=== PATIENT | male | born 1950 | race Caucasian/White ===

== ENCOUNTER 2024-02-17 08:40 | Emergency (ER) | payer OTHER, MEDICAID ==
[~2024-02-17] VITALS: Ht 182.9 cm; Wt 114.3 kg
[2024-02-17] MEDS ORDERED: TAMS-35 PO (10:25)
[2024-02-17 10:44] VITALS: BP 140/91; PULSE 98; RESP 18; TEMP 98.7; O2SAT 93
== END 2024-02-17 10:44 | disposition home or self-care (01) ==
LOC: ER 08:40
DX: R33.9 Retention of urine, unspecified (principal); Z88.1 Allergy status to other antibiotic agents
CPT/HCPCS: 51702

== ENCOUNTER 2025-08-05 05:40 | Inpatient (IN) | payer OTHER, MEDICARE ==
[~2025-08-05] VITALS: Ht 185.4 cm; Wt 116.0 kg
[~2025-08-05 05:40] MED LIST: TAMS-35 PO
--- NOTE | 2025-08-05 06:29 | ED.PDOC ---
General HPI Comments This is 75 year-old male, with a Hx of Enlarged Prostate, who presents to the ED with a chief complaint of urinary retention for hours. Patient reports the urge to urinate, but an inability to do so. Patient reports his last void was last night around 2230. Patient reports having urinary problems before, due to his enlarged prostate. Patient has no further complaints at this time and otherwise denies further associated symptoms of dysuria, hematuria, N/V/D, weakness, fatigue, fever. Chief Complaint: Urinary Time Seen by MD: 06:39 Primary Care Provider: CIARA KIMBALL Reviewed notes: Medications, Allergies Allergies: Coded Allergies: Ciprofloxacin (Verified Allergy, Unknown, 02/17/24) Home Meds Active Scripts Tamsulosin Hcl (Flomax) 0.4 Mg Cap, 1 CAP PO DAILY, #30 CAP Prov:TORRI QUINTERO 02/17/24 Information Source: Patient Mode of Arrival: Ambulatory Severity: Moderate Inability to void: Mild Duration: Since onset Prehospital treatment: None Onset: Spontaneous History of: Prostatitis associated signs and symptoms: Other (urinary retention ) Past Medical History PAST MEDICAL HISTORY: High Lipids Past Medical History (Other): Prostate, Mcgowan's Palsy Surgical History: Unknown Family History Family History: Unknown Social History Smoker: Non-Smoker Alcohol: Denies ETOH Use Drugs: Denies Drug Use Lives In: Home Constitutional: denies: chills, diaphoresis, fatigue, fever, malaise, sweats, weakness, others EENTM: denies: blurred vision, double vision, ear bleeding, ear discharge, ear drainage, ear pain, ear ringing, eye pain, eye redness, hearing loss, mouth pain, mouth swelling, nasal discharge, nose bleeding, nose congestion, nose pain, photophobia, tearing, throat pain, throat swelling, voice changes, others Respiratory: denies: cough, hemoptysis, orthopnea, SOB at rest, shortness of breath, SOB with excertion, stridor, wheezing, others Cardiovascular: denies: chest pain, dizzy spells, diaphoresis, Dyspnea on exertion, edema, irregular heart beat, left arm pain, lightheadedness, palpitations, PND, syncope, others Gastrointestinal: denies: abdomen distended, abdominal pain, blood streaked bowels, constipated, diarrhea, dysphagia, difficulty swallowing, hematemesis, melena, nausea, poor appetite, poor fluid intake, rectal bleeding, rectal pain, vomiting, others Genitourinary: reports: others (urinary retention ); denies: burning, dysuria, flank pain, frequency, hematuria, incontinence, penile discharge, penile sore, pain, testicle pain, testicle swelling, urgency Neurological: denies: dizziness, fainting, headache, left sided numbness, left sided weakness, numbness, paresthesia, pre-existing deficit, right sided numbness, right sided weakness, seizure, speech problems, tingling, tremors, weakness, others Musculoskeletal: denies: back pain, gout, joint pain, joint swelling, muscle pain, muscle stiffness, neck pain, others Integumetry: denies: bruises, change in color, change in hair/nails, dryness, laceration, lesions, lumps, rash, wounds, others Allergic/Immunocompromised: denies: Difficulty Healing, Frequent Infections, Hives, Itching, others Hematologic/Lymphatic: denies: anemia, blood clots, easy bleeding, easy bruising, swollen glands, others Endocrine: denies: excessive hunger, excessive sweating, excessive thirst, excessive urination, flushing, intolerance to cold, intolerance to heat, unexplained weight gain, unexplained weight loss, others Psychiatric: denies: anxiety, bipolar disorder, depression, hopeless, panic disorder, schizophrenia, sleepless, suicidal, others All Other Systems: Reviewed and Negative Physical Exam General Appearance: Moderate Distress HEENT: Normal ENT Inspection, Pharynx Normal, TMs Normal Neck: Full Range of Motion, Non-Tender, Normal, Normal Inspection Respiratory: Chest Non-Tender, Lungs Clear, No Accessory Muscle Use, No Respi ratory Distress, Normal Breath Sounds Cardiovascular: No Edema, No JVD, No Murmur, No Gallop, Normal Peripheral Pulses, Regular Rate/Rhythm Breast Exam: Deferred Gastrointestinal: No Organomegaly, Non Tender, No Pulsatile Mass, Normal Bowel Sounds, Soft Genitalia: Deferred Pelvic: Deferred Rectal: Deferred Extremities: No calf tenderness, Normal capillary refill, Normal inspection, Normal range of motion, Non-tender, No pedal edema Musculoskeletal : Apperance: Normal Neurologic: Alert, puff ironer II-XII nml as Tested, Facial Droop (Chronic), No Motor Deficits, Normal Affect, Normal Mood, No Sensory Deficits Cerebellar Function: Normal Reflexes: Normal Skin: Dry, Normal Color, Warm Peripheral Pulses: 3+ Radial (R), 3+ Radial (L) Lymphatic: No Adenopathy Was a procedure done? Was a procedure done?: No Differential Diagnosis Kidney stone (Female): Musculoskeletal pain, Urinary obstruction, Urolithiasis Urinary Problem (Male): Prostatitis, Urethritis, Urolithiasis, UTI X-Ray, Labs, Meds, VS Vital Signs Date Time Temp Pulse Resp B/P (MAP) Pulse Ox O2 Delivery O2 Flow Rate FiO2 08/05/25 05:49 98.2 107 20 150/94 96 98.2 Lab Test 08/05/25 07:02 Range/Units White Blood Count Pending Red Blood Count Pending Hemoglobin Pending Hematocrit Pending Mean Corpuscular Volume Pending Mean Corpuscular Hemoglobin Pending Mean Corpuscular Hemoglobin Concent Pending Red Cell Distribution Width Pending Platelet Count Pending Mean Platelet Volume Pending Neutrophils (%) (Auto) Pending Lymphocytes (%) (Auto) Pending Monocytes (%) (Auto) Pending Basophils (%) (Auto) Pending Neutrophils # (Auto) Pending Lymphocytes # (Auto) Pending Monocytes # (Auto) Pending Sodium Level Pending Potassium Level Pending Chloride Level Pending Carbon Dioxide Level Pending Anion Gap Pending Blood Urea Nitrogen Pending Creatinine Pending Glomerular Filtration Rate Calc Pending BUN/Creatinine Ratio Pending Serum Glucose Pending Calcium Level Pending Patient alert. Blood pressure elevated. Saturation pristine on room air. Tachycardia. Has old facial droop. Placed a Cerda catheter. Urology consultation. Was given Flomax. Explained to the patient that he will be admitted for further workup. Continue monitoring. Images Reviewed?: Images reviewed and evaluated by me Time of 1ST Reevaluation: 06:55 Reevaluation 1ST: Unchanged Patient Education/Counseling: Diagnosis, Treatment Family Education/Counseling: No Family Present SEPSIS Sepsis Screen Date sepsis recognized/suspect: Aug 05, 2025 Time Sepsis recognized/suspect: 0551 Recent Procedure: No On Antibiotic Therapy: No Respiratory Rate >20: No Heart Rate >90: Yes Temp<36 C (96.8 F) or >38.3 C: No SBP <90 or MAP <65 mmHG: No New Acute Mental Status Change: No Is the patient on CPAP, BIPAP,: No Physician Orders Urinalysis (08/05/25 06:51) Insert Cerda Catheter QSHIFT (08/05/25 06:51) Complete Blood Count (08/05/25 06:52) Basic Metabolic Panel (08/05/25 06:52) Vital Signs Date Time Temp Pulse Resp B/P (MAP) Pulse Ox O2 Delivery O2 Flow Rate FiO2 08/05/25 05:49 98.2 107 20 150/94 96 98.2 Laboratory Tests Test 08/05/25 07:02 White Blood Count Pending Departure 1 Departure Time of Disposition: 07:16 Impression: Primary Impression: Acute urinary retention Additional Impression: Hypertension Qualified Codes: I10 - Essential (primary) hypertension Disposition: ADMITTED INPATIENT Admit to: Med Surg Condition: Guarded Critical Care Note Critical Care Time?: No Stability Stability form required: No Heart Score Heart Score: Heart Score Response (Comments) Value History N/A 0 EKG N/A 0 Age N/A 0 Risk Factors N/A 0 Troponin N/A 0 Total 0 I personally scribed for DUKE PULIDO MD ([email or web address]) on 08/05/25 at 06:29. Electronically submitted by Mag Strickland ([email or web address]). I personally scribed for DUKE PULIDO MD ([email or web address]) on 08/05/25 at 06:54. Electronically submitted by Mag Strickland ([email or web address]). DUKE PULIDO MD Aug 05, 2025 06:29
[2025-08-05 07:16] LABS: Hematocrit 46.6 % (41.0-53.0); Hemoglobin 16.0 g/dL (13.5-17.5); Mean Corpuscular Hemoglobin 29.7 pg (28.0-32.0); Mean Corpuscular Volume 86.3 fL (80.0-100.0); Nucleated Red Blood Cells % 0.1 %
[2025-08-05 07:23] LABS: Potassium 4.3 mmol/L (3.5-5.1); Sodium 142 mmol/L (136-145)
[2025-08-05 07:24] LABS: Anion Gap 9 (5-15); Calcium 9.4 mg/dL (8.7-10.4); Carbon Dioxide 25 mmol/L (20-31)
[2025-08-05 07:25] LABS: Chloride 108 mmol/L (98-107)
[2025-08-05 07:29] LABS: BUN/Creatinine Ratio 9.9 (10.0-20.0); Blood Urea Nitrogen 11 mg/dL (9-23)
[2025-08-05 07:32] LABS: Glucose 124 mg/dL (74-106)
[2025-08-05 07:35] VITALS: PULSE 100; RESP 12; O2SAT 94
[2025-08-05] MEDS: TAMSULOSIN HYDROCHLORIDE 0.4 MG CAP PO ONE (07:55)
[2025-08-05 07:58] LABS: Urine Protein, UAD Negative (Negative)
[2025-08-05] MEDS ORDERED: ACETAMINOPHEN 325 MG TAB PO PRN (08:15)
[2025-08-05] MEDS ORDERED: ONDANSETRON HCL 4 MG/2 ML VIAL IV PRN (08:15)
[2025-08-05] MEDS ORDERED: MORPHINE SULFATE INJ 2 MG/ml SYRG IV PRN (08:15)
--- NOTE | 2025-08-05 08:24 | DVHHPRES ---
History of Present Illness Resident Creating Document: SUJATHA KNAPP History of Present Illness Vignesh Damon is a 75-year-old male patient who presents to ED with chief complaint of inability to urinate since 10:30 p.m. on 08/04/2025, deciding to present to the ED at 5:00 a.m. on 08/05/2025 where his symptoms resolved after placement of a Cerda catheter. Patient reports history of BPH, he is compliant with his tamsulosin. Denies any fever, chills, initiation of new medication, dysuria in any other associated symptom. 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 Surgical history: Cataract surgery two years ago, appendectomy Family history: Noncontributory Social history: Lives in [place] alone (next of kin is son). Ex tobacco abuse (45 pack-year history of smoking) quit 12 years ago. Denies current tobacco, alcohol and other drug abuse Allergies: Ciprofloxacin Home medication: Atorvastatin 20 mg p.o. daily, tamsulosin 0.4 mg p.o. daily Patient seen and examined at bedside. Currently has no new complaints. Has Cerda catheter placed which presents clear urine. Past Medical History Per HPI Past Surgical History Per HPI Family History Per HPI Past Social History Per HPI Review of Systems Review of Systems Per HPI Allergies: Coded Allergies: Ciprofloxacin (Verified Allergy, Unknown, 02/17/24) Medications Current Medications Medications Dose Ordered Sig/Demetrius Route Start Time Stop Time Status Last Admin Dose Admin Acetaminophen 325 mg Q4HP PRN PO 08/05/25 08:15 Ondansetron HCl 4 mg Q4HP PRN IV 08/05/25 08:15 UNV Morphine Sulfate 2 mg Q4HPRN PRN IV 08/05/25 08:15 UNV Enoxaparin Sodium 40 mg DAILY SC 08/05/25 10:00 UNV Exam Vital Signs Vital Signs Date Time Temp Pulse Resp B/P (MAP) Pulse Ox O2 Delivery O2 Flow Rate FiO2 08/05/25 07:35 98.3 100 12 133/87 (102) 94 98.3 08/05/25 07:35 Room Air* 0 21 Exam Patient lying in bed, in no acute distress General: Lucid, afebrile, mucosae are moist Cardiovascular: Normal S1 and S2. No murmurs, gallops or rubs Respiratory: Normal ventilation mechanics. Clear lung sounds on auscultation Abdomen: Soft, nontender, no organomegaly, normal bowel sounds MSK/skin: Mobilizes 4 limbs. Skin is dry and warm Neurological: Oriented in 3 spheres. Left peripheral facial paralysis, no other motor no sensitive deficits. Pupils are isocoric and reactive Labs/Xrays Labs Test 08/05/25 07:41 08/05/25 07:02 Range/Units Urine Color Light-yellow Yellow Urine Clarity Clear Clear Urine pH 5.5 5.0-9.0 Urine Specific [place] 1.009 1.001-1.035 Urine Protein Negative Negative Urine Ketones Negative Negative Urine Blood Negative Negative /uL Urine Nitrite Negative Negative Urine Bilirubin Negative Negative Urine Urobilinogen Normal Negative mg/dL Urine Leukocyte Esterase Negative Negative /uL Urine RBC 1 0 - 3 /hpf Urine Microscopic WBC 1 0-3 /HPF Urine Squamous Epithelial Cells None seen <5 /hpf Urine Bacteria None seen None Seen /hpf Urine Glucose Normal Normal mg/dL White Blood Count 9.6 4.4-10.8 10^3/uL Red Blood Count 5.40 4.5-5.90 10^6/uL Hemoglobin 16.0 13.5-17.5 g/dL Hematocrit 46.6 41.0-53.0 % Mean Corpuscular Volume 86.3 80.0-100.0 fL Mean Corpuscular Hemoglobin 29.7 28.0-32.0 pg Mean Corpuscular Hemoglobin Concent 34.4 32.0-36.0 g/dL Red Cell Distribution Width 14.8 H 11.8-14.3 % Platelet Count 204 140-450 10^3/uL Mean Platelet Volume 7.8 6.9-10.8 fL Neutrophils (%) (Auto) 76.7 37.0-80.0 % Lymphocytes (%) (Auto) 14.3 10.0-50.0 % Monocytes (%) (Auto) 7.5 0.0-12.0 % Eosinophils (%) (Auto) 1.3 0.0-7.0 % Basophils (%) (Auto) 0.2 0.0-2.0 % Neutrophils # (Auto) 7.4 1.6-8.6 10 ^3/uL Lymphocytes # (Auto) 1.4 0.4-5.4 10 ^3/uL Monocytes # (Auto) 0.7 0-1.3 10 ^3/uL Eosinophils # (Auto) 0.1 0-0.8 10 ^3/uL Basophils # (Auto) 0 0-0.2 10 ^3/uL Nucleated Red Blood Cells 0.1 % Sodium Level 142 136-145 mmol/L Potassium Level 4.3 3.5-5.1 mmol/L Chloride Level 108 H 98-107 mmol/L Carbon Dioxide Level 25 20-31 mmol/L Anion Gap 9 5-15 Blood Urea Nitrogen 11 9-23 mg/dL Creatinine 1.11 0.700-1.30 mg/dL Glomerular Filtration Rate Calc 69 >90 mL/min BUN/Creatinine Ratio 9.9 L 10.0-20.0 Serum Glucose 124 H 74-106 mg/dL Calcium Level 9.4 8.7-10.4 mg/dL SEPSIS Sepsis Screen Date sepsis recognized/suspect: Aug 05, 2025 Time Sepsis recognized/suspect: 07 Recent Procedure: No On Antibiotic Therapy: No Respiratory Rate >20: No Heart Rate >90: Yes Temp<36 C (96.8 F) or >38.3 C: No SBP <90 or MAP <65 mmHG: No New Acute Mental Status Change: No Is the patient on CPAP, BIPAP,: No Physician Orders Insert Cerda Catheter QSHIFT (08/05/25 06:51) Admit (08/05/25 08:14) Code Status (08/05/25 08:14) Acetaminophen Tablet (Tylenol Tablet) (08/05/25 08:15) Ondansetron Hcl (Zofran) (08/05/25 08:15) Complete Blood Count (08/06/25 04:00) Comprehensive Metabolic Panel (08/06/25 04:00) Cardiac Diet-2gna,Lofat,Lochol (08/05/25 Breakfast) Morphine Sulfate Injection (08/05/25 08:15) Enoxaparin Sodium (Lovenox) (08/05/25 10:00) Oxygen By Nasal Cannula (08/05/25 08:14) Stat Ekg For Chest Pain (08/05/25 08:14) Notify Of Changes From Base (08/05/25 08:14) Paint Specialist For 24 Hours (08/05/25 08:14) Emergency Dysrhythmia Protocol (08/05/25 08:14) Rhythm Strips Once Every Shift (08/05/25 08:14) Kidney (08/05/25 08:14) Chest Xray 1 View (08/05/25 08:14) Urine Bacterial Culture (08/05/25 08:14) Vitamin D, 25-Hydroxy (08/05/25 08:14) Vitamin B12 (08/05/25 08:14) Thyroid Stimulating Hormone (08/05/25 08:14) PTPTT (08/05/25 08:14) Phosphorus (08/05/25 08:14) Magnesium (08/05/25 08:14) Lipid Panel (08/05/25 08:14) Hemoglobin A1c (08/05/25 08:14) Drug Screen (08/05/25 08:14) Hepatic Panel (08/05/25 08:20) Vital Signs Date Time Temp Pulse Resp B/P (MAP) Pulse Ox O2 Delivery O2 Flow Rate FiO2 08/05/25 07:35 98.3 100 12 133/87 (102) 94 98.3 08/05/25 07:35 100 12 94 Room Air* 0 21 08/05/25 05:49 98.2 107 20 150/94 96 98.2 Laboratory Tests Test 08/05/25 07:02 White Blood Count 9.6 10^3/uL (4.4-10.8) Medications Medications Dose Ordered Sig/Demetrius Route Start Time Stop Time Status Last Admin Dose Admin Tamsulosin HCl 0.4 mg ONCE ONCE PO 08/05/25 07:30 08/05/25 07:31 DC 08/05/25 07:55 0.4 MG Assessment/Plan Assessment/Plan ASSESSMENT Acute urinary retention Rule out UTI Benign prostatic hyperplasia History of Mcgowan's palsy at the age of [age] Dyslipidemia Newly diagnosed prediabetes (hemoglobin A1c 5.8%) Ex tobacco abuse (45 pack-year history of smoking) PLAN Patient admitted to [facility] Ordered kidney ultrasound which showed no hydronephrosis or acute findings. Consulted Urology for urinary retention. Evaluate discharging patient with Cerda. Ordered PSA. Continue tamsulosin 0.4 mg p.o. daily Urine analysis seems clear, ordered urine culture. Hold on IV antibiotics at this point. Patient has significant pack-year history of smoking, high-risk of bladder cancer Patient's LDL is still elevated, increase dose of atorvastatin from 20 mg to 40 mg p.o. daily Patient currently on mild insulin sliding scale ACHS Goals of care discussed with patient for over 18 minutes: Full code status Discussed plan with Dr. Gomez, patient and family: Patient will be admitted to [facility]. Consulted urology specialist to evaluate need of discharging with Cerda catheter. Kidney ultrasound within normal limits. Plan discussed with: Patient, Other (Nurses) My Orders Orders - SUJATHA KNAPP RESIDENT Procedure Category Date Status Time Admit ADMIT 08/05/25 Transmitted 08:14 Code Status CODE 08/05/25 Transmitted 08:14 Acetaminophen Tablet PHA 08/05/25 Logged (Tylenol Tablet) 08:15 Ondansetron Hcl PHA 08/05/25 Logged (Zofran) 08:15 Complete Blood Count LAB 08/06/25 Verified 04:00 Comprehensive LAB 08/06/25 Verified Metabolic Panel 04:00 Cardiac DIET 08/05/25 Transmitted Diet-2gna,Lofat,Lochol Breakfast Morphine Sulfate PHA 08/05/25 Logged Injection 08:15 Enoxaparin Sodium PHA 08/05/25 Logged (Lovenox) 10:00 Oxygen By Nasal RT 08/05/25 Transmitted Cannula 08:14 Stat Ekg For Chest [place] 08/05/25 In Process Pain 08:14 Notify Of Changes [place] 08/05/25 In Process From Base 08:14 Paint Specialist For [facility] 08/05/25 In Process 24 Hours 08:14 Emergency Dysrhythmia [place] 08/05/25 In Process Protocol 08:14 Rhythm Strips Once [facility] 08/05/25 In Process Every Shift 08:14 Kidney US 08/05/25 Logged 08:14 Chest Xray 1 View XY 08/05/25 Logged 08:14 Urine Bacterial [place] 08/05/25 Logged Culture 08:14 Vitamin D, 25-Hydroxy LAB 08/05/25 Logged 08:14 Vitamin B12 LAB 08/05/25 Logged 08:14 Thyroid Stimulating LAB 08/05/25 Logged Hormone 08:14 PTPTT LAB 08/05/25 Logged 08:14 Phosphorus LAB 08/05/25 Logged 08:14 Magnesium LAB 08/05/25 Logged 08:14 Lipid Panel LAB 08/05/25 Logged 08:14 Hemoglobin A1c LAB 08/05/25 Logged 08:14 Drug Screen LAB 08/05/25 Logged 08:14 Hepatic Panel LAB 08/05/25 Logged 08:20 Date of Service: Aug 05, 2025 Billing Provider: TRISH GOMEZ MD Common Visit Codes: [id number] INP/OBS CARE (HIGH) Secondary Visit Codes: [id number] CARE PLAN 30 MINUTES SUJATHA KNAPP RESIDENT Aug 05, 2025 08:24
[2025-08-05 08:48] LABS: Magnesium 1.9 mg/dL (1.6-2.6)
[2025-08-05 08:49] LABS: HDL Cholesterol 53.0 mg/dL (40-59)
[2025-08-05 08:52] LABS: Cholesterol 216.0 mg/dL (< 200); Triglycerides 172.0 mg/dL (< 150)
[2025-08-05 09:04] LABS: Alanine Aminotransferase 21.0 U/L (7-40); Alkaline Phosphatase 95.0 U/L (46-116); Total Protein 7.6 g/dL (5.7-8.2)
[2025-08-05 09:05] LABS: Albumin 4.6 g/dL (3.2-4.8); Bilirubin, Direct 0.1 mg/dL (<0.3); Bilirubin, Total 0.5 mg/dL (0.2-1.0)
--- NOTE | 2025-08-05 09:05 | DVH ---
INDICATION: Acute urinary retention TECHNIQUE: Multiple real-time sonographic images of the kidneys and bladder were obtained. COMPARISON: None FINDINGS: The right kidney measures 9.8 cm in length, which is normal in size. There is normal echoge nicity of the right kidney. No hydronephrosis. The left kidney measures 9.6 cm in length, which is normal in size. There is normal echogenicity of t he left kidney. No hydronephrosis. No large intraluminal masses are seen in the bladder. Prior to voiding the bladder volume measures vo lume 66.3 cc. IMPRESSION: 1. Normal sonographic appearance of the kidneys. 2. No hydronephrosis.
[2025-08-05 09:20] LABS: INR 1.01 (0.9-1.15); Partial Thromboplastin Time 30.1 SEC (24.5-34.5); Prothrombin Time 10.7 sec (9.3-11.8)
--- NOTE | 2025-08-05 09:23 | DVH ---
CHEST RADIOGRAPH Indication: SOB Technique: Single frontal view of the chest was obtained COMPARISON: None FINDINGS: Lines and Tubes: None present. Lungs: Subtle opacity in the left lower lobe. Pleura: No pleural effusion. No pneumothorax. Cardiomediastinal contours: Cardiomediastinal contours are unremarkable. Bones: Bones are unremarkable. IMPRESSION: Subtle opacity in the left lower lobe. This may represent atelectasis, artifact or developing airspa ce disease. Clinical correlation advised.
[2025-08-05 09:42] LABS: Amphetamine Screen, Urine Neg (NEGATIVE); Barbiturate Scree,Urine Neg (NEGATIVE); Benzodiazephine Screen, Urine Neg (NEGATIVE); Cocaine Screen, Urine Neg (NEGATIVE)
[2025-08-05 09:44] LABS: Cannabinoid Screen, Urine Neg (NEGATIVE); Opiate Scree,Urine Neg (NEGATIVE); Phencyclidine Screen, Urine Neg (NEGATIVE)
[2025-08-05] MEDS: ENOXAPARIN SOD 40 MG/0.4 ML SYRINGE SC SCH (10:00)
[2025-08-05 10:23] VITALS: BP 135/81; PULSE 95; RESP 16; TEMP 97.4; O2SAT 94
[2025-08-05] MEDS ORDERED: DEXTROSE (50%) 50ML SYRG IV PRN (10:30)
[2025-08-05] MEDS ORDERED: ATOR20TA50 PO (11:09)
[2025-08-05] MEDS: InsuLIN REG 1unit/0.01ml Soln (100units/ml) SC SCH (11:17)
[2025-08-05] MEDS: ACCU-CHEK COMFORT CURVE STRIP VI SCH (11:18)
[2025-08-05] MEDS: SODIUM PHOSPHATES 20 MEQ in SODIUM CHL 0.9% 100 ML IV ONE (11:30)
--- NOTE | 2025-08-05 12:52 | DVHPN2 ---
Reviewed: Care Plan, H&P, Labs, Medications, Previous Orders, Radiology Changes from previous H/P or p: No Changes Objective Vitals Vital Signs Date Time Temp Pulse Resp B/P (MAP) Pulse Ox O2 Delivery O2 Flow Rate FiO2 08/05/25 10:23 97.4 95 16 135/81 (99) 94 97.4 08/05/25 07:35 Room Air* 0 21 Medications Current Medications Medications Dose Ordered Sig/Demetrius Route Start Time Stop Time Status Last Admin Dose Admin Acetaminophen 325 mg Q4HP PRN PO 08/05/25 08:15 Ondansetron HCl 4 mg Q4HP PRN IV 08/05/25 08:15 Morphine Sulfate 2 mg Q4HPRN PRN IV 08/05/25 08:15 Enoxaparin Sodium 40 mg DAILY SC 08/05/25 10:00 Tamsulosin HCl 0.4 mg QPM PO 08/06/25 18:00 Atorvastatin Calcium 40 mg HS PO 08/05/25 22:00 Diagnostic Test (Pha) 1 strip ACHS 08/05/25 11:30 08/05/25 11:18 1 STRIP Insulin Human Regular ACHS SC 08/05/25 11:30 Dextrose 50 ml UD PRN IV 08/05/25 10:30 Laboratory Results Laboratory Tests 08/05/25 07:02 Chemistry Test 08/05/25 07:02 Albumin 4.6 g/dL (3.2-4.8) Calcium Level 9.4 mg/dL (8.7-10.4) Magnesium Level 1.9 mg/dL (1.6-2.6) Phosphorus Level 2.3 mg/dL (2.4-5.1) L Total Protein 7.6 g/dL (5.7-8.2) Coagulation Test 08/05/25 07:02 Prothrombin Time 10.7 sec (9.3-11.8) Prothrombin Time INR 1.01 (0.9-1.15) Activated Partial Thromboplast Time 30.1 SEC (24.5-34.5) Lipid panel Test 08/05/25 07:02 Cholesterol Level 216 mg/dL (< 200) H HDL Cholesterol 53 mg/dL (40-59) Triglycerides Level 172 mg/dL (< 150) H LFT Test 08/05/25 07:02 Alanine Aminotransferase (ALT) 21 U/L (7-40) Alkaline Phosphatase 95 U/L (46-116) Aspartate Amino Transferase (AST) 23 U/L (13-40) Direct Bilirubin 0.1 mg/dL (<0.3) Total Bilirubin 0.5 mg/dL (0.2-1.0) HgA1c, TSH Test 08/05/25 07:02 Hemoglobin A1c 5.8 % A1C (<5.7) H Thyroid Stimulating Hormone (TSH) 2.23 uIU/mL (0.55-4.78) Urinalysis Test 08/05/25 07:41 Urine Color Light-yellow (Yellow) Urine Clarity Clear (Clear) Urine pH 5.5 (5.0-9.0) Urine Specific [place] 1.009 (1.001-1.035) Urine Protein Negative (Negative) Urine Ketones Negative (Negative) Urine Blood Negative /uL (Negative) Urine Nitrite Negative (Negative) Urine Bilirubin Negative (Negative) Urine Urobilinogen Normal mg/dL (Negative) Urine Leukocyte Esterase Negative /uL (Negative) Urine RBC 1 /hpf (0 - 3) Urine Microscopic WBC 1 /HPF (0-3) Urine Squamous Epithelial Cells None seen /hpf (<5) Urine Bacteria None seen /hpf (None Seen) Urine Glucose Normal mg/dL (Normal) Labs and/or images reviewed: Labs reviewed by me, Image(s) reviewed by me Assessment/Plan Assessment/Plan Acute urinary retention Cerda renal ultrasound neg UTI ruled out Benign prostatic hyperplasia : Flomax History of Mcgowan's palsy at the age of [age] Dyslipidemia : Lipitor History of smoking for 45 years: Counseling Time spent 45 minutes Advanced care planning time 20 minutes Patient is full code Plan discussed with: Patient Date of Service: Aug 05, 2025 Billing Provider: SHANTAL LAGUERRE MD Common Visit Codes: [id number] INP/OBS CARE(HIGH) Secondary Visit Codes: [id number] CARE PLAN 30 MINUTES SHANTAL LAGUERRE MD Aug 05, 2025 12:52
[2025-08-05 12:58] VITALS: BP 145/81; PULSE 100; RESP 15; TEMP 97.5; O2SAT 95
[2025-08-05 17:51] VITALS: BP 138/90; PULSE 98; RESP 20; TEMP 98; O2SAT 95
[2025-08-05 21:00] VITALS: BP 124/85; PULSE 97; RESP 18; TEMP 96.4; O2SAT 93
[2025-08-05] MEDS: ATORVASTATIN 20 MG TAB PO SCH (21:09)
[2025-08-06 04:54] VITALS: BP 130/95; PULSE 91; RESP 17; TEMP 96.8; O2SAT 93
[2025-08-06 06:30] LABS: Hematocrit 43.6 % (41.0-53.0); Hemoglobin 15.0 g/dL (13.5-17.5); Mean Corpuscular Hemoglobin 29.8 pg (28.0-32.0); Mean Corpuscular Volume 86.7 fL (80.0-100.0); Nucleated Red Blood Cells % 0.1 %
[2025-08-06 06:57] LABS: Alanine Aminotransferase 23 U/L (7-40); Albumin 4.3 g/dL (3.2-4.8); Alkaline Phosphatase 88 U/L (46-116); Anion Gap 13 (5-15); BUN/Creatinine Ratio 17.4 (10.0-20.0); Bilirubin, Total 0.8 mg/dL (0.2-1.0); Blood Urea Nitrogen 16 mg/dL (9-23); Calcium 9.1 mg/dL (8.7-10.4); Carbon Dioxide 23 mmol/L (20-31); Chloride 105 mmol/L (98-107); Glucose 96 mg/dL (74-106); Potassium 4.7 mmol/L (3.5-5.1); Sodium 141 mmol/L (136-145); Total Protein 6.9 g/dL (5.7-8.2)
[2025-08-06 08:52] VITALS: BP 130/90; PULSE 95; RESP 18; TEMP 98; O2SAT 93
--- NOTE | 2025-08-06 12:40 | DVHPN2 ---
Reviewed: Care Plan, H&P, Labs, Medications, Previous Orders, Radiology Changes from previous H/P or p: No Changes Objective Vitals Vital Signs Date Time Temp Pulse Resp B/P (MAP) Pulse Ox O2 Delivery O2 Flow Rate FiO2 08/06/25 08:52 98.0 95 18 130/90 (103) 93 98.0 08/05/25 20:05 Room Air* 0 21 Intake/Output Intake and Output 08/06/25 07:00 Intake Total 700 ml Output Total 1200 ml Balance -500 ml Intake Oral 700 ml Output Urine Total 1200 ml Medications Current Medications Medications Dose Ordered Sig/Demetrius Route Start Time Stop Time Status Last Admin Dose Admin Acetaminophen 325 mg Q4HP PRN PO 08/05/25 08:15 Ondansetron HCl 4 mg Q4HP PRN IV 08/05/25 08:15 Morphine Sulfate 2 mg Q4HPRN PRN IV 08/05/25 08:15 Enoxaparin Sodium 40 mg DAILY SC 08/05/25 10:00 08/06/25 10:41 40 MG Tamsulosin HCl 0.4 mg QPM PO 08/06/25 18:00 Atorvastatin Calcium 40 mg HS PO 08/05/25 22:00 08/05/25 21:09 40 MG Diagnostic Test (Pha) 1 strip ACHS 08/05/25 11:30 08/06/25 06:56 1 STRIP Insulin Human Regular ACHS SC 08/05/25 11:30 Dextrose 50 ml UD PRN IV 08/05/25 10:30 Laboratory Results Laboratory Tests 08/06/25 04:30 Chemistry Test 08/06/25 04:30 Albumin 4.3 g/dL (3.2-4.8) Calcium Level 9.1 mg/dL (8.7-10.4) Total Protein 6.9 g/dL (5.7-8.2) LFT Test 08/06/25 04:30 Alanine Aminotransferase (ALT) 23 U/L (7-40) Alkaline Phosphatase 88 U/L (46-116) Aspartate Amino Transferase (AST) 35 U/L (13-40) Total Bilirubin 0.8 mg/dL (0.2-1.0) Urinalysis Test 08/05/25 07:41 Urine Color Light-yellow (Yellow) Urine Clarity Clear (Clear) Urine pH 5.5 (5.0-9.0) Urine Specific [place] 1.009 (1.001-1.035) Urine Protein Negative (Negative) Urine Ketones Negative (Negative) Urine Blood Negative /uL (Negative) Urine Nitrite Negative (Negative) Urine Bilirubin Negative (Negative) Urine Urobilinogen Normal mg/dL (Negative) Urine Leukocyte Esterase Negative /uL (Negative) Urine RBC 1 /hpf (0 - 3) Urine Microscopic WBC 1 /HPF (0-3) Urine Squamous Epithelial Cells None seen /hpf (<5) Urine Bacteria None seen /hpf (None Seen) Urine Glucose Normal mg/dL (Normal) Labs and/or images reviewed: Labs reviewed by me, Image(s) reviewed by me Assessment/Plan Assessment/Plan Acute urinary retention Cerda renal ultrasound neg consult for urology UTI ruled out Benign prostatic hyperplasia : Flomax History of Mcgowan's palsy at the age of [age] Dyslipidemia : Lipitor History of smoking for 45 years: Counseling Time spent 45 minutes Advanced care planning time 20 minutes Patient is full code Plan discussed with: Patient My Orders Orders - SHANTAL LAGUERRE MD Procedure Category Date Status Time * Urology Consult CONS 08/06/25 Transmitted 12:33 Date of Service: Aug 06, 2025 Billing Provider: SHANTAL LAGUERRE MD Common Visit Codes: [id number] INP/OBS CARE(HIGH) SHANTAL LAGUERRE MD Aug 06, 2025 12:40
--- NOTE | 2025-08-06 12:45 | DVHINCON2 ---
Date of service: Aug 06, 2025 Referring Physician Liliana Cohen Reason for Consultation Urinary retention History of Present Illness 75 year-old male, with a Hx of Enlarged Prostate, who presents to the ED with a chief complaint of urinary retention for hours. Patient reports the urge to urinate, but an inability to do so. Patient reports his last void was last night around 2230. Patient reports having urinary problems before, due to his enlarged prostate. Patient has no further complaints at this time and otherwise denies further associated symptoms of dysuria, hematuria, N/V/D, weakness, fatigue, fever. Chief Complaint: Urinary Primary Care Provider: [facility] Reviewed notes: Medications, Allergies Allergies: Coded Allergies: Ciprofloxacin (Verified Allergy, Unknown, 02/17/24) Home Meds Active Scripts Tamsulosin Hcl (Flomax) 0.4 Mg Cap, 1 CAP PO DAILY, #30 CAP Prov:TORRI QUINTERO 02/17/24 Information Source: Patient Mode of Arrival: Ambulatory Severity: Moderate Inability to void: Mild Duration: Since onset Prehospital treatment: None Onset: Spontaneous History of: Prostatitis associated signs and symptoms: Other (urinary retention ) Past Medical History High Lipids Past Medical History (Other): Prostate, Mcgowan's Palsy Family History: Patient reports no known family medical history. Allergies: Coded Allergies: Ciprofloxacin (Verified Allergy, Unknown, 02/17/24) Home Meds Active Scripts Tamsulosin Hcl (Flomax) 0.4 Mg Cap, 1 CAP PO DAILY, #30 CAP Prov:TORRI QUINTERO 02/17/24 Reported Medications Atorvastatin Calcium (ATORVASTATIN CALCIUM) 20 Mg Tab, 20 MG PO DAILY, TAB 08/05/25 Current Medications Current Medications Medications (Trade) Dose Ordered Sig/Demetrius Route PRN Reason Start Time Stop Time Status Last Admin Tamsulosin HCl (Flomax) 0.4 mg QPM PO 08/06/25 18:00 Atorvastatin Calcium (Lipitor) 40 mg HS PO 08/05/25 22:00 08/05/25 21:09 Review of Systems Urinary retention Vital Signs Vital Signs Date Time Temp Pulse Resp B/P (MAP) Pulse Ox O2 Delivery O2 Flow Rate FiO2 08/06/25 08:52 98.0 95 18 130/90 (103) 93 98.0 08/05/25 20:05 Room Air* 0 21 Physical Exam Cerda in place Labs/Diagnostic Data Labs Test 08/06/25 10:43 08/06/25 04:30 08/05/25 11:12 08/05/25 07:41 Range/Units POC Glucose 100 70-106 mg/dl White Blood Count 9.3 4.4-10.8 10^3/uL Red Blood Count 5.03 4.5-5.90 10^6/uL Hemoglobin 15.0 13.5-17.5 g/dL Hematocrit 43.6 41.0-53.0 % Mean Corpuscular Volume 86.7 80.0-100.0 fL Mean Corpuscular Hemoglobin 29.8 28.0-32.0 pg Mean Corpuscular Hemoglobin Concent 34.3 32.0-36.0 g/dL Red Cell Distribution Width 14.7 H 11.8-14.3 % Platelet Count 194 140-450 10^3/uL Mean Platelet Volume 8.4 6.9-10.8 fL Neutrophils (%) (Auto) 71.9 37.0-80.0 % Lymphocytes (%) (Auto) 17.5 10.0-50.0 % Monocytes (%) (Auto) 8.8 0.0-12.0 % Eosinophils (%) (Auto) 1.5 0.0-7.0 % Basophils (%) (Auto) 0.3 0.0-2.0 % Neutrophils # (Auto) 6.7 1.6-8.6 10 ^3/uL Lymphocytes # (Auto) 1.6 0.4-5.4 10 ^3/uL Monocytes # (Auto) 0.8 0-1.3 10 ^3/uL Eosinophils # (Auto) 0.1 0-0.8 10 ^3/uL Basophils # (Auto) 0 0-0.2 10 ^3/uL Nucleated Red Blood Cells 0.1 % Sodium Level 141 136-145 mmol/L Potassium Level 4.7 3.5-5.1 mmol/L Chloride Level 105 98-107 mmol/L Carbon Dioxide Level 23 20-31 mmol/L Anion Gap 13 5-15 Blood Urea Nitrogen 16 9-23 mg/dL Creatinine 0.92 0.700-1.30 mg/dL Glomerular Filtration Rate Calc 87 >90 mL/min BUN/Creatinine Ratio 17.4 10.0-20.0 Serum Glucose 96 74-106 mg/dL Calcium Level 9.1 8.7-10.4 mg/dL Total Bilirubin 0.8 0.2-1.0 mg/dL Aspartate Amino Transferase (AST) 35 13-40 U/L Alanine Aminotransferase (ALT) 23 7-40 U/L Alkaline Phosphatase 88 46-116 U/L Total Protein 6.9 5.7-8.2 g/dL Albumin 4.3 3.2-4.8 g/dL Urine Color Light-yellow Yellow Urine Clarity Clear Clear Urine pH 5.5 5.0-9.0 Urine Specific [place] 1.009 1.001-1.035 Urine Protein Negative Negative Urine Ketones Negative Negative Urine Blood Negative Negative /uL Urine Nitrite Negative Negative Urine Bilirubin Negative Negative Urine Urobilinogen Normal Negative mg/dL Urine Leukocyte Esterase Negative Negative /uL Urine RBC 1 0 - 3 /hpf Urine Microscopic WBC 1 0-3 /HPF Urine Squamous Epithelial Cells None seen <5 /hpf Urine Bacteria None seen None Seen /hpf Urine Glucose Normal Normal mg/dL Urine Opiates Screen Neg NEGATIVE Urine Fentanyl Screen Neg NEGATIVE Urine Barbiturates Screen Neg NEGATIVE Urine Phencyclidine Screen Neg NEGATIVE Urine Amphetamines Screen Neg NEGATIVE Urine Benzodiazepines Screen Neg NEGATIVE Urine Cocaine Screen Neg NEGATIVE Urine Cannabinoids Screen Neg NEGATIVE Test 08/05/25 07:02 Range/Units Prothrombin Time 10.7 9.3-11.8 sec Prothrombin Time INR 1.01 0.9-1.15 Activated Partial Thromboplast Time 30.1 24.5-34.5 SEC Hemoglobin A1c 5.8 H <5.7 % A1C Phosphorus Level 2.3 L 2.4-5.1 mg/dL Magnesium Level 1.9 1.6-2.6 mg/dL Direct Bilirubin 0.1 <0.3 mg/dL Triglycerides Level 172 H < 150 mg/dL Cholesterol Level 216 H < 200 mg/dL LDL Cholesterol 143 H < 100 mg/dL HDL Cholesterol 53 40-59 mg/dL Vitamin B12 Level 376 211-911 pg/mL Vitamin D 25-Hydroxy 37.9 30.0-100 ng/mL Thyroid Stimulating Hormone (TSH) 2.23 0.55-4.78 uIU/mL PATIENT: BATSHEVA ROMERO ACCT: [id number] UNIT: [id number] : 1950 LOC: OVERFLOW ROOM / BED: 1009-ER / A AGE / SEX: 75 / M ADM STATUS: ADM IN SERVICE 3 ORDERING PHYSICIAN: SUJATHA KNAPP RESIDENT PROCEDURE(s): KIDUS - KIDNEY REASON: Acute urinary retention ORDER NUMBER(s): [id number], ACCESSION NUMBER(s): [id number] INDICATION: Acute urinary retention TECHNIQUE: Multiple real-time sonographic images of the kidneys and bladder were obtained. COMPARISON: None FINDINGS: The right kidney measures 9.8 cm in length, which is normal in size. There is normal echogenicity of the right kidney. No hydronephrosis. The left kidney measures 9.6 cm in length, which is normal in size. There is normal echogenicity of the left kidney. No hydronephrosis. No large intraluminal masses are seen in the bladder. Prior to voiding the bladder volume measures volume 66.3 cc. IMPRESSION: 1. Normal sonographic appearance of the kidneys. 2. No hydronephrosis. ATED BY: CRYS RICARDO MD DICTATED DATE/TIME: 08/05/25902 SIGNED BY: CRYS RICARDO MD SIGNED DATE/TIME: 08/05/25902 Assessment BPH Urinary retention Cerda in place Plan/Recommendation PSA Cerda to leg bag F/u clinic next week for cystoscopy/UDS Plan discussed with: TRISTEN Keen MD Aug 06, 2025 12:45
[2025-08-06 13:00] VITALS: BP 136/71; PULSE 87; RESP 20; TEMP 98.2; O2SAT 94
--- NOTE | 2025-08-06 14:54 | DVH ---
COMPUTERIZED TOMOGRAPHY ABDOMEN AND PELVIS WITHOUT CONTRAST REASON FOR EXAM: Acute urinary retention COMPARISON: None TECHNIQUE: Spiral scans were acquired from the diaphragm to the symphysis pubis without intravenous c ontrast administration. 2-D coronal and sagittal reformatted images were provided. Radiation optimiza tion: All CT scans at this facility use at least one of these dose optimization techniques: Automated exposure control mA and/or kV adjustment per patient size (includes targeted exams where dose is mat ched to clinical indication) or iterative reconstruction. RADIATION DOSE: CTDI: 24.36 mGy DLP: 1523.11 mGy-cm FINDINGS: There are a few punctate calcified granulomata at the lung bases, consistent with prior granulomatous disease. There is mild mucous plugging in the dependent right lower lobe. There is no pleural effus ion. There is no pericardial effusion. The spleen is not enlarged. The liver is normal in size and contour. There is a 2.9 cm cystic struct ure in the right lobe of the liver, likely a simple cyst. Evaluation of the abdominal organs is subop timal in the absence of intravenous contrast. There are a few tiny calcified gallstones along the dep endent gallbladder wall. There is no pericholecystic edema. Unenhanced appearance of the pancreas is unremarkable. The adrenal glands are normal. There is mild, nonspecific left perinephric stranding. There is no hydronephrosis of either kidney. The left ureter appears mildly thickened compared with t he right. There is mild left periureteral stranding. The urinary bladder is collapsed about a Cerda catheter balloon. No renal, ureteral, or bladder calculus is identified. The prostate is enlarged. T he colonic stool burden is small. There is mild scattered colonic diverticulosis without evidence of diverticulitis. The appendix is not seen and may be absent. There is no free fluid identified in the abdomen or pelvis. There is no pathologic lymphadenopathy identified by size criteria. There is no abdominal aortic aneurysm. There is moderate atherosclerosis. No acute osseous abnormality is identi fied. There are degenerative changes throughout the visualized spine. IMPRESSION: Mild left perinephric and periureteral stranding. This is nonspecific but could be related to infecti on or a recently passed stone. No renal, ureteral, or bladder calculus is identified on the current s tudy. Prostatomegaly.
[2025-08-06 16:58] VITALS: BP 122/88; PULSE 88; RESP 18; TEMP 98; O2SAT 94
[2025-08-06] MEDS: TAMSULOSIN HYDROCHLORIDE 0.4 MG CAP PO SCH (18:37)
[2025-08-06 21:00] VITALS: BP 122/86; PULSE 88; RESP 18; TEMP 98.1; O2SAT 94
[2025-08-07 00:52] VITALS: BP 121/78; PULSE 94; RESP 18; TEMP 98.2; O2SAT 95
[2025-08-07 05:00] VITALS: BP 114/74; PULSE 89; RESP 18; TEMP 98.8; O2SAT 96
[2025-08-07 06:48] LABS: Hematocrit 42.9 % (41.0-53.0); Hemoglobin 14.5 g/dL (13.5-17.5); Mean Corpuscular Hemoglobin 29.6 pg (28.0-32.0); Mean Corpuscular Volume 87.5 fL (80.0-100.0); Nucleated Red Blood Cells % 0.0 %
[2025-08-07 07:04] LABS: Alanine Aminotransferase 17 U/L (7-40); Alkaline Phosphatase 80 U/L (46-116); Anion Gap 10 (5-15); BUN/Creatinine Ratio 13.6 (10.0-20.0); Blood Urea Nitrogen 15 mg/dL (9-23); Calcium 9.0 mg/dL (8.7-10.4); Carbon Dioxide 26 mmol/L (20-31); Chloride 104 mmol/L (98-107); Glucose 93 mg/dL (74-106); Potassium 4.3 mmol/L (3.5-5.1); Sodium 140 mmol/L (136-145); Total Protein 7.0 g/dL (5.7-8.2)
[2025-08-07 07:05] LABS: Albumin 4.2 g/dL (3.2-4.8); Bilirubin, Total 0.8 mg/dL (0.2-1.0)
[2025-08-07 09:00] VITALS: BP 139/85; PULSE 83; RESP 20; TEMP 98; O2SAT 95
[2025-08-07 11:08] LABS: Prostate Specific Antigen 17.1 ng/mL (0.0-4.0)
--- NOTE | 2025-08-07 11:43 | DVHPN2 ---
Reviewed: Care Plan, H&P, Labs, Medications, Previous Orders, Radiology Changes from previous H/P or p: No Changes Objective Vitals Vital Signs Date Time Temp Pulse Resp B/P (MAP) Pulse Ox O2 Delivery O2 Flow Rate FiO2 08/07/25 09:25 Room Air* 0 21 08/07/25 09:00 98.0 83 20 139/85 (103) 95 98.0 Intake/Output Intake and Output 08/07/25 07:00 Intake Total 1100 ml Output Total 350 ml Balance 750 ml Intake Oral 1100 ml Output Urine Total 350 ml # Bowel Movements 2 Medications Current Medications Medications Dose Ordered Sig/Demetrius Route Start Time Stop Time Status Last Admin Dose Admin Acetaminophen 325 mg Q4HP PRN PO 08/05/25 08:15 Ondansetron HCl 4 mg Q4HP PRN IV 08/05/25 08:15 Morphine Sulfate 2 mg Q4HPRN PRN IV 08/05/25 08:15 Enoxaparin Sodium 40 mg DAILY SC 08/05/25 10:00 08/07/25 09:10 40 MG Tamsulosin HCl 0.4 mg QPM PO 08/06/25 18:00 08/06/25 18:37 0.4 MG Atorvastatin Calcium 40 mg HS PO 08/05/25 22:00 08/06/25 21:37 40 MG Diagnostic Test (Pha) 1 strip ACHS 08/05/25 11:30 08/07/25 06:14 1 STRIP Insulin Human Regular ACHS SC 08/05/25 11:30 Dextrose 50 ml UD PRN IV 08/05/25 10:30 Laboratory Results Laboratory Tests 08/07/25 04:45 Chemistry Test 08/07/25 04:45 Albumin 4.2 g/dL (3.2-4.8) Calcium Level 9.0 mg/dL (8.7-10.4) Total Protein 7.0 g/dL (5.7-8.2) LFT Test 08/07/25 04:45 Alanine Aminotransferase (ALT) 17 U/L (7-40) Alkaline Phosphatase 80 U/L (46-116) Aspartate Amino Transferase (AST) 24 U/L (13-40) Total Bilirubin 0.8 mg/dL (0.2-1.0) Urinalysis Test 08/05/25 07:41 Urine Color Light-yellow (Yellow) Urine Clarity Clear (Clear) Urine pH 5.5 (5.0-9.0) Urine Specific [place] 1.009 (1.001-1.035) Urine Protein Negative (Negative) Urine Ketones Negative (Negative) Urine Blood Negative /uL (Negative) Urine Nitrite Negative (Negative) Urine Bilirubin Negative (Negative) Urine Urobilinogen Normal mg/dL (Negative) Urine Leukocyte Esterase Negative /uL (Negative) Urine RBC 1 /hpf (0 - 3) Urine Microscopic WBC 1 /HPF (0-3) Urine Squamous Epithelial Cells None seen /hpf (<5) Urine Bacteria None seen /hpf (None Seen) Urine Glucose Normal mg/dL (Normal) Labs and/or images reviewed: Labs reviewed by me, Image(s) reviewed by me Assessment/Plan Assessment/Plan Acute urinary retention Cerda renal ultrasound neg consult for urology , PSA pending advised outpatient follow up in one week UTI ruled out Benign prostatic hyperplasia : Flomax 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
[2025-08-07 13:00] VITALS: BP 133/84; PULSE 82; RESP 18; TEMP 98; O2SAT 94
[2025-08-07 16:48] VITALS: BP 155/90; PULSE 86; RESP 18; TEMP 98.1; O2SAT 94
== END 2025-08-07 17:30 | disposition home or self-care (01) | DRG 726 ==
LOC: ER 05:40 → OVERFLOW 08:14 → WEST WING 17:02
PROVIDERS: ADMIT Family Medicine; ATTEND Family Medicine
DX: N40.1 Benign prostatic hyperplasia with lower urinary tract symptoms (principal); R73.03 Prediabetes; R33.8 Other retention of urine; I10 Essential (primary) hypertension; E78.5 Hyperlipidemia, unspecified; G51.0 Bell's palsy; Z88.1 Allergy status to other antibiotic agents; Z87.891 Personal history of nicotine dependence; Z71.6 Tobacco abuse counseling
CPT/HCPCS: 36415; 51702; 71045; 74176; 76775; 80048; 80053; 80061; 80076; 80307; 81001; 82306; 82607; 82962; 83036; 83735; 84100; 84154; 84443; 85025; 85610; 85730; 87086; G0378